=== PATIENT | male | born 1980 ===

== ENCOUNTER 2021-05-12 06:00 | Day surgery (SDC) | payer OTHER ==
[~2021-05-12 06:00] MED LIST: CABERGOLINE0.5 MG PO
== END 2021-05-12 13:00 | disposition home or self-care (01) ==
LOC: CIR.AMB 06:00
PROVIDERS: ATTEND Orthopaedic Surgery Sports Medicine
DX: M75.121 Complete rotator cuff tear or rupture of right shoulder, not specified as traumatic (principal); Z20.822 Contact with and (suspected) exposure to COVID-19